=== PATIENT | female | born 1990 | race Caucasian/White ===

== ENCOUNTER 2017-09-11 23:08 | Emergency (ER) | payer OTHER ==
[~2017-09-11] VITALS: Ht 157.5 cm; Wt 74.1 kg
[~2017-09-11 23:08] MED LIST: NAPR-636; PRED10TA; TRAM50TA
[2017-09-11 23:31] VITALS: BP 124/70
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
--- NOTE | 2017-09-12 00:13 | DIREP ---
PROCEDURE:XRAY ELBOW 2VWS-LT COMPARISON:None. INDICATIONS:Pain FINDINGS: BONES:Normal. JOINTS:Normal. No displaced anterior or posterior fat pads. SOFT TISSUES:Normal. OTHER:Normal. CONCLUSION:No acute fracture Dictated by: Phil Munroe DO on 09/12/2017 at 00:12 AM
--- NOTE | 2017-09-12 00:13 | DIREP ---
PROCEDURE:XRAY SHOULDER MIN 2 VWS-LT COMPARISON:None. INDICATIONS:Pain FINDINGS: BONES:Normal. JOINTS:Normal glenohumeral and acromioclavicular joints. No evidence for dislocation. SOFT TISSUES:Normal. OTHER:Normal. CONCLUSION:No acute fracture. No dislocation. Dictated by: Phil Munroe DO on 09/12/2017 at 00:11 AM
[2017-09-12 00:33] VITALS: BP 124/70
== END 2017-09-12 00:28 | disposition home or self-care (01) ==
LOC: ER 23:08
DX: M25.512 Pain in left shoulder (principal); M25.522 Pain in left elbow; F17.210 Nicotine dependence, cigarettes, uncomplicated; Z91.040 Latex allergy status
CPT/HCPCS: 99284; 73030-LT; 73070-LT